=== PATIENT | female | born 1940 | race Caucasian/White ===

== ENCOUNTER 2017-06-21 12:43 | Emergency (ER) | payer MEDICARE ==
[~2017-06-21] VITALS: Ht 157.5 cm; Wt 69.5 kg
[~2017-06-21 12:43] MED LIST: ESTR0.5T9 PO; LEVO.125 PO; ZITH250T PO
[2017-06-21 12:55] VITALS: BP 144/67; PULSE 69; RESP 18; TEMP 97.6; O2SAT 96
--- NOTE | 2017-06-21 13:22 | PD ---
HPI Chief Complaint: Pain: Acute or Chronic Time Seen by Provider: 13:14 Travel History International Travel<30 days: No Contact w/Intl Traveler<30days: No Traveled to known affect area: No History of Present Illness HPI Patient comes to the emergency department complaining of pain and swelling in her left index finger. Patient reports symptoms began 2 days ago. Patient reports she took ibuprofen yesterday seem to help with the pain some. Patient reports also trying to soak in warm water. Patient reports she symptoms have improved from initial onset. Patient denies any known trauma, fevers, or other injuries to the finger. Patient describes a throbbing pain over the proximal phalanx and PIP joint. Denies any radiation. Pain is worse palpation and with certain movement. PFSH Past Medical History Arthritis: Yes Asthma: No Autoimmune Disease: No Blood Disorders: No Anxiety: Yes Depression: Yes Heart Rhythm Problems: No Cancer: No Cardiovascular Problems: No High Cholesterol: No Chemotherapy: No Chest Pain: No Congestive Heart Failure: No COPD: No Cerebrovascular Accident: No Diabetes: No Endocrine: Yes Gastrointestinal Disorders: No GERD: No Glaucoma: No Genitourinary: No Headaches: No Hepatitis: No Hiatal Hernia: No Hypertension: No Immune Disorder: No Kidney Stones: No Musculoskeletal: Yes Neurologic: No Psychiatric: No Reproductive: No Respiratory: Yes Myocardial Infarction: No Radiation Therapy: No Renal Failure: No Seizures: No Sickle Cell Disease: No Sleep Apnea: No Thyroid Disease: Yes Ulcer: No ?: Not Menopausal: Yes Past Surgical History Abdominal Surgery: No AICD: No Appendectomy: Yes Body Medical Devices: TRIGEMINAL NEURALGIA Cardiac Surgery: No Ear Surgery: No Endocrine Surgery: Yes (TONSILS) Eye Surgery: No Genitourinary Surgery: No Gynecologic Surgery: Yes (HYSTRECTOMY) Hysterectomy: Yes Neurologic Surgery: Yes (GAMMA-KNIFE, TRIGEMINAL NEUROGAL SURGERY) Oral Surgery: No Pacemaker: No Thoracic Surgery: No Tonsillectomy: No Other Surgery: Yes (DECOMPRESSION SX) Social History Alcohol Use: No Tobacco Use: No Substance Use: No Allergies-Medications (Allergen,Severity, Reaction): Coded Allergies: iodine (Unverified Allergy, Severe, 06/21/17) penicillin G (Unverified Allergy, Severe, 06/21/17) potassium iodide (Unverified Allergy, Severe, 06/21/17) povidone-iodine (Unverified Allergy, Severe, 06/21/17) sodium iodide (Unverified Allergy, Severe, 06/21/17) sodium iodide (Unverified Allergy, Severe, 06/21/17) Reported Meds & Prescriptions Reported Meds & Active Scripts Active Prednisolone Liq (Prednisolone) 15 Mg/5 Ml Soln 15 Mg PO BID 4 Days Reported Dyrenium (Triamterene) 50 Mg Cap 50 Mg PO DAILY Levothyroxine (Levothyroxine Sodium) 112 Mcg Tab 112 Mcg PO DAILY Estrace (Estradiol) 2 Mg Tab 2 Mg PO DAILY Review of Systems Except as stated in HPI: all other systems reviewed are Neg Physical Exam Narrative GENERAL: Well-developed, well nourished, in no acute distress, and non-ill appearing. SKIN: Focused skin assessment warm and dry. HEAD: Atraumatic. Normocephalic. EYES: Pupils equal and round. EOMI. No scleral icterus. No injection or drainage. ENT: No nasal bleeding or discharge. Mucous membranes pink and moist. NECK: Trachea midline. Supple. No nuclear rigidity. CARDIOVASCULAR: Capillary refill less than 2 seconds. RESPIRATORY: No accessory muscle use. No respiratory distress. MUSCULOSKELETAL: No obvious deformities. No clubbing. No cyanosis. No edema. Decreased range of motion left index finger secondary to pain and soft tissue swelling. Patient reports chest pain over left index finger proximal phalanx and PIP joint. There is some soft tissue swelling. Minimal erythematous. No crepitus. Afebrile. NEUROLOGICAL: Awake and alert. No obvious cranial nerve deficits. Motor grossly within normal limits. Normal speech. PSYCHIATRIC: Appropriate mood and affect; insight and judgment normal. 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 Alen Rosas MD Differential Diagnosis Fracture, gout, pseudogout, arthritis flare, joint infection Narrative Course Patient in no obvious distress upon re-evaluation. All pertinent Radiology result(s) discussed with patient/family. Discussed patient with Dr. Maddox prior to discharge, who saw and evaluated the patient and is in agreement with plan of care and disposition.. Any questions/concerns in reference to patient diagnosis/condition discussed and clarified prior to patient's discharge. Reinforced sheer importance of close follow up with patient's primary physician or primary care clinic. Instructed patient to return to ED immediately, if symptoms return/worsen. Patient showed understanding of above instructions. Further instructions and recommendations were detailed in discharge paperwork. Patient ambulated without difficulty out of ED at discharge. Diagnosis Primary Impression: Arthralgia Qualified Codes: M25.50 - Pain in unspecified joint Patient Instructions: Arthralgia (ED), Arthritis (ED), General Instructions Additional Instructions: Follow-up with your primary care physician in 2-3 days for reevaluation. Take all medication as prescribed. Do not take Motrin, Aleve, ibuprofen, Naprosyn while taking medication prescribed today. Apply ice to affected area 20 min/h as needed for pain and swelling. Return to the emergency department if symptoms get worse. Med/Other Pt SpecificInfo: Prescription(s) given Scripts Prednisolone Liq (Prednisolone Liq) 15 Mg/5 Ml Soln 15 MG PO BID for 4 Days, #40 ML 0 Refills Prov: Aj Joel MD 06/21/17 Disposition: 01 DISCHARGE HOME Condition: Stable Cezar Caraballo Jun 21, 2017 13:22
[2017-06-21] MEDS ORDERED: ESTR2TAB4 PO (13:27)
[2017-06-21] MEDS ORDERED: TRIA1CAP6 PO (13:27)
[2017-06-21] MEDS ORDERED: LEVO112T2 PO (13:27)
[2017-06-21] MEDS ORDERED: DEXAMETHASONE SOD PHOS 20 MG/5 ML VIAL IM ONE (13:30)
--- NOTE | 2017-06-21 14:10 | RADRPT ---
EXAM DATE/TIME: 06/21/2017 13:37 [facility] COMPARISON: No previous studies available for comparison. INDICATIONS : Left second finger pain, throbbing, & swelling mostly over PIP joint, with no known injury. MEDICAL HISTORY : Hypertension. Arthritis. Prior injury to left 3rd finger. Thyroid disease. SURGICAL HISTORY : Tonsillectomy. Appendectomy. Hysterectomy. ENCOUNTER: Initial ACUITY: 2 days PAIN SCORE: 8/10 LOCATION: Left hand second digit. FINDINGS: There is moderate soft tissue swelling about the 2nd digit proximally. No radiopaque foreign body se en. Moderate severity over cirrhosis osteoarthritis involving the 2nd through 5th DIP joints and the 2nd PIP joint. Less severe degenerative changes are seen in the 3rd through 5th PIP joints. No rad iopaque foreign bodies. 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 Alen Rosas MD on June 21, 2017 at 14:06 Board Certified Radiologist. This report was verified electronically.
[2017-06-21] MEDS ORDERED: PRED20 PO (14:42)
[2017-06-21] MEDS ORDERED: PRED15UDC PO (14:55)
== END 2017-06-21 15:05 | disposition home or self-care (01) ==
LOC: PHEFT 12:43
DX: M25.50 Pain in unspecified joint (principal); R22.32 Localized swelling, mass and lump, left upper limb; E07.9 Disorder of thyroid, unspecified; Z87.39 Personal history of other diseases of the musculoskeletal system and connective tissue; Z86.59 Personal history of other mental and behavioral disorders
CPT/HCPCS: 73140; 96372; 99283; J1100